=== PATIENT | male | born 1985 | race Caucasian/White ===

== ENCOUNTER 2017-12-16 14:28 | Emergency (ER) | payer BC, OTHER ==
[~2017-12-16] VITALS: Ht 170.2 cm; Wt 109.0 kg
[2017-12-16 14:36] VITALS: BP 139/66; PULSE 81; RESP 16; TEMP 98.9; O2SAT 98
[2017-12-16] MEDS ORDERED: CLIN150C14 PO (15:28)
[2017-12-16] MEDS ORDERED: PRED-503 PO (15:28)
--- NOTE | 2017-12-16 15:28 | PD ---
HPI Chief Complaint: Skin Problem Time Seen by Provider: 14:50 Travel History International Travel<30 days: No Contact w/Intl Traveler<30days: No Traveled to known affect area: No History of Present Illness HPI 32-year-old male presents to emergency department with complaint of poison rosa rash to his right forearm and right flank and abdominal area 1 week. As he is also stung to his right biceps area by a bee the other day. Says he noticed improvement in the rash, but he said he started feeling weak and tired last night and says he can feel some swollen lymph nodes in his right armpit and right groin area. Denies fever, vomiting. Denies airway edema, tongue edema, chest pain, shortness of breath. Rash is very itchy. Denies pain. Is not up- to-date on tetanus and does not want it updated. Has been using calamine lotion , Advil, Benadryl for symptom management. Primary CARE providers Dr. Mcgee at the [place] [facility]. No known allergies. Denies significant past medical history. Has no other medical complaints. No other modifying factors or associated signs and symptoms. PFSH Past Medical History Medical History: Denies Significant Hx Influenza Vaccination: No Past Surgical History Oral Surgery: Yes (WISDOM TEETH) Social History Alcohol Use: Yes (ONCE A WEEK) Tobacco Use: Yes (1PPD) Substance Use: No Allergies-Medications (Allergen,Severity, Reaction): Coded Allergies: No Known Allergies (Verified Allergy, Unknown, 12/16/17) Reported Meds & Prescriptions Reported Meds & Active Scripts Active Clindamycin (Clindamycin HCl) 150 Mg Cap 450 Mg PO Q6H 10 Days Deltasone (Prednisone) 20 Mg Tab 40 Mg PO DAILY 4 Days start 12/17/2017 Review of Systems Except as stated in HPI: all other systems reviewed are Neg Physical Exam Narrative GENERAL: Well-nourished, well-developed patient, in no acute distress; afebrile , nontoxic-appearing SKIN: Warm and dry. Vesicular rash to right forearm; right upper arm/bicep area with area of erythema and warmth to touch; right armpit with erythemic rash , that is nonvesicular in appearance, noted and with tenderness on palpation; I do not feel any specific swollen lymph nodes. Large area of vesicular rash noted to right abdomen and flank area. Lymphadenopathy on palpation to the right groin area. HEAD: Atraumatic. Normocephalic. EYES: Pupils equal and round. No scleral icterus. No injection or drainage. ENT: Mucosa pink and moist. Airway patent. NECK: Trachea midline. CARDIOVASCULAR: Regular rate RESPIRATORY: No accessory muscle use. GASTROINTESTINAL:Rounded. MUSCULOSKELETAL: No obvious deformities. No clubbing. No cyanosis. No edema. NEUROLOGICAL: Awake and alert. Oriented 3. No obvious cranial nerve deficits. Motor grossly within normal limits. Normal speech. PSYCHIATRIC: Appropriate mood and affect; insight and judgment normal. Data Data Last Documented VS Vital Signs Date Time Temp Pulse Resp B/P (MAP) Pulse Ox O2 Delivery O2 Flow Rate FiO2 12/16/17 14:36 98.9 81 16 139/66 (90) 98 Orders Orders Clindamycin Inj (Cleocin Inj) (12/16/17 15:30) Prednisone (Deltasone) (12/16/17 15:30) Ed Discharge Order (12/16/17 15:29) [facility] Medical Decision Making Medical Screen Exam Complete: Yes Emergency Medical Condition: Yes Medical Record Reviewed: Yes Differential Diagnosis Poison rosa dermatitis, cellulitis, allergic reaction Narrative Course 32-year-old male with poison rosa rash to his right forearm and right abdomen/ flank area. He does have some palpable lymphadenopathy in the right groin area. He is afebrile and nontoxic-appearing. He denies fever, vomiting. I did want to check basic labs secondary to his complaint of feeling weak and tired. The patient does not want his labs checked at this time. I will treat the patient for infection and allergic type reaction. Clindamycin 600 mg IM administered in the ER. Deltasone administered in the ER. Patient is driving and will take Benadryl when he gets home. Discussed reasons the patient returned return back to the emergency department immediately. He verbalized understanding and agreement. Clindamycin, Deltasone prescribed for home. Instructed patient to continue Benadryl as directed and as needed for rash/ itching. Instructed patient to follow-up with mounter [facility]. Instructed patient to follow up with primary care provider. Patient verbalizes understanding and agreement with treatment plan. Patient is medically cleared and stable for discharge. Discussed reasons to return to the emergency department. Patient agrees with treatment plan. The patients vital signs are stable and the patient is stable for outpatient follow-up and treatment. Patient discharged home, stable and in no acute distress. Diagnosis Primary Impression: Poison rosa dermatitis Referrals: [facility] Specialist Primary Care Physician Patient Instructions: Acute Rash (ED), General Instructions, Poison Rosa (ED) Additional Instructions: Antibiotics as prescribed and complete full course Take oral steroids as prescribed [id number] topicals to reduce itch Benadryl as directed and as needed to reduce itch/rash Follow-up with your primary care provider Follow-up with mounter [facility] Return to the emergency department immediately with worsening of symptoms Med/Other Pt SpecificInfo: Prescription(s) given Scripts Clindamycin (Clindamycin) 150 Mg Cap 450 MG PO Q6H for Infection for 10 Days, #120 CAP 0 Refills Prov: Avelina Weaver 12/16/17 Prednisone (Deltasone) 20 Mg Tab 40 MG PO DAILY for 4 Days, #8 TAB 0 Refills start 12/17/2017 Prov: Avelina Weaver 12/16/17 Disposition: 01 DISCHARGE HOME Condition: Stable Avelina Weaver Dec 16, 2017 15:28
[2017-12-16] MEDS ORDERED: predniSONE 20 MG TAB PO ONE (15:30)
[2017-12-16] MEDS ORDERED: CLINDAMYCIN PHOS 600 MG/4 ML VIAL IM ONE (15:30)
== END 2017-12-16 16:16 | disposition home or self-care (01) ==
LOC: PHEFT 14:28
DX: L23.7 Allergic contact dermatitis due to plants, except food (principal); F17.210 Nicotine dependence, cigarettes, uncomplicated
CPT/HCPCS: 96372; 99283; J7512